=== PATIENT | female | born 1990 | race Caucasian/White ===

== ENCOUNTER → 2022-07-03 | Outpatient (CLI) | payer OTHER ==
[~2022-07-03] MED LIST: ARIP1TAB PO; B-12100010 PO; D 50CAP3 PO; DICL50TA2 PO; DICL75TA PO; FAMO40TA3 PO; INSU100V13 SQ; MAGN400T2 PO; METO1TAB7 PO; MISO200T56 PO; PANT40TA29 PO; STEG15TA PO; SUMA25TA3 PO; TOPI-254 PO
== END ==
LOC: M LABSMTC 08:07
PROVIDERS: ATTEND Anesthesiology
DX: Z20.822 Contact with and (suspected) exposure to COVID-19 (principal)

== ENCOUNTER 2022-07-08 08:50 | Day surgery (SDC) | payer OTHER ==
[~2022-07-08] VITALS: Ht 165.1 cm; Wt 99.2 kg
[~2022-07-08 08:50] MED LIST changes: +BSS IRRIG/VANCO(10MG)/TOBRA(5MG)/EPINEPH(1:1000-0.5CC)500ML BAG-ORONLY IR ONE; +CEFUROXIME 1MG/0.1ML INTRACAMERAL INJ As Ordered ONE; +CYCLOPENTOLATE 1% OPHTH SOLN 2ML BTL OD SCH; +LIDOCAINE 1% SDV 5ML VIAL As Ordered ONE; +LIDOCAINE 3.5 % 1ML OPHTH TOPICAL GEL OU ONE; +MIDAZOLAM INJ 2MG/2ML VIAL As Ordered ONE; +OFLOXACIN 0.3 % (OCUFLOX) OPTH SOL 5ML OD ONE; +PHENYLEPHRINE 10% OPHTH SOL 5ML OD PRN; +PHENYLEPHRINE 2.5% OPHTH SOL 2ML OD SCH; +TROPICAMIDE 1% OPHTH SOLN 15ML OD SCH; +fentaNYL 100 MCG/2 ML INJECTION As Ordered ONE
[2022-07-08 10:50] VITALS: BP 129/65
== END 2022-07-08 11:05 | disposition home or self-care (01) ==
LOC: M SDC 08:50
PROVIDERS: ATTEND Ophthalmology
DX: H25.11 Age-related nuclear cataract, right eye (principal); R94.31 Abnormal electrocardiogram [ECG] [EKG]; Z98.84 Bariatric surgery status; I10 Essential (primary) hypertension; F32.A Depression, unspecified; F41.9 Anxiety disorder, unspecified; G43.909 Migraine, unspecified, not intractable, without status migrainosus; Z79.899 Other long term (current) drug therapy; E11.9 Type 2 diabetes mellitus without complications; Z79.4 Long term (current) use of insulin
CPT/HCPCS: 66984; 81025; J0697; J2250; J3010; V2632

== ENCOUNTER → 2023-01-23 | Outpatient (REF) | payer OTHER ==
[~2023-01-23] MED LIST changes: -BSS IRRIG/VANCO(10MG)/TOBRA(5MG)/EPINEPH(1:1000-0.5CC)500ML BAG-ORONLY IR ONE; -CEFUROXIME 1MG/0.1ML INTRACAMERAL INJ As Ordered ONE; -CYCLOPENTOLATE 1% OPHTH SOLN 2ML BTL OD SCH; -LIDOCAINE 1% SDV 5ML VIAL As Ordered ONE; -LIDOCAINE 3.5 % 1ML OPHTH TOPICAL GEL OU ONE; -MIDAZOLAM INJ 2MG/2ML VIAL As Ordered ONE; -MISO200T56 PO; +MISO200T83 PO; -OFLOXACIN 0.3 % (OCUFLOX) OPTH SOL 5ML OD ONE; -PHENYLEPHRINE 10% OPHTH SOL 5ML OD PRN; -PHENYLEPHRINE 2.5% OPHTH SOL 2ML OD SCH; -TROPICAMIDE 1% OPHTH SOLN 15ML OD SCH; -fentaNYL 100 MCG/2 ML INJECTION As Ordered ONE
[2023-01-23 18:23] LABS: CREATININE, URINE 140.3 MG/DL; MAU/CREAT RATIO 4.2 MCG/MG (0.0-30.0)
== END ==
LOC: M LAB REF 17:26
PROVIDERS: ATTEND Nurse Practitioner Family
DX: E11.65 Type 2 diabetes mellitus with hyperglycemia (principal)